=== PATIENT | female | born 1965 | race African-American/Black ===

== ENCOUNTER 2021-02-24 13:18 | Emergency (ER) | payer MEDICARE, SELFPAY ==
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
[2021-02-24 13:19] VITALS: BP 151/105; PULSE 98; RESP 16; TEMP 36.6; O2SAT 98
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
[2021-02-24] MEDS: HYDROcodone/acetaminophen (*CRX) 5-325 MG TABLET 2 TAB PO (15:42)
[2021-02-24 17:22] VITALS: BP 154/112; PULSE 64; RESP 18; O2SAT 99
== END 2021-02-24 17:22 | disposition home or self-care (01) ==
PROVIDERS: Emergency Provider Nurse Practitioner
DX: G89.4 Chronic pain syndrome (principal); M19.032 Primary osteoarthritis, left wrist; I10 Essential (primary) hypertension; F41.9 Anxiety disorder, unspecified
CPT/HCPCS: 73110; 99283; A9270